=== PATIENT | female | born 1975 | race Hispanic/Latino ===

== ENCOUNTER 2019-04-28 15:40 | Observation (INO) | payer SELFPAY ==
[~2019-04-28] VITALS: Ht 160 cm; Wt 84.1 kg
--- NOTE | ~2019-04-28 | DS ---
[facility] [address] [place], [place] [address] Draft ADMISSION DATE: 04/28/2019 DISCHARGE DATE: 04/29/2019 HOSPITAL COURSE: The patient is a 43-year-old 3, para 2, AB 1, who was admitted through the emergency room last night with severe pelvic pain x3-4 days and retained products of conception. She had undergone a spontaneous on 03/16/2019 in [place] and was given single dose of misoprostol to hopefully complete a removal of products of conception. This apparently was not sufficient to completely empty the uterus and she continued to have some bleeding off and on for the last month and half until she began starting having severe pain a few days ago. She denied any fever or any other symptoms whatever. On admission to the emergency room, she was afebrile and her vital signs were essentially normal, although she did have an admission tachycardia that resolved with simply some time in the emergency room without any therapy whatever. She was also having some chest pain and back pain at the same time and an EKG was done, which was read as normal. The chest pain was assumed to simply be anxiety. Her admission lab work was normal with a hemoglobin of 14.6 and a normal lipase of 16, but she did have sightly elevated liver enzymes, unexplained by anything in her history. Upon my examination, she had a somewhat tender uterus on bimanual exam and the cervix appeared to be completely closed with a small amount of bloody mucus being present. The rest of her examination was quite unremarkable. The ultrasound indicated quite obvious retained products of conception and she was taken to the operating room yesterday evening where a suction and sharp D and C was accomplished with removal of any remaining products of concept, with 435 mL of measured blood loss during the surgery. Postoperatively, in terms of the D and C, she was fine with very minimal bleeding, but she did resume with her chest pain and abdominal pain, which was very vague and difficult to localize. Because of concern of possible gallbladder disease, an upper abdomen ultrasound was accomplished, which was completely negative for all organ systems visualized. She has been diabetic for many years and Medicine consult was obtained with management of her diabetes through the night. Her hemoglobin Alc was 9.1 on admission, so she obviously is not well controlled, but she will resume her normal insulin administration, which consists of 40 units of Lantus at bedtime and sliding scale NovoLog injection before meals. She is to follow up with her regular doctor in [place] for continued diabetic care. She is also to follow up with her OB care provider in [place] as far as completion of this SAB. Upon discharge, she was pain free, having minimal bleeding and very hungry and ready to be discharged. She was discharged with instructions and will follow up as indicated. No medications are given her in terms of prescription, but she is encouraged to stay on vitamins indefinitely until she goes to her menopause, and the reasons for that are explained to her. PATIENT NAME: SANAM AGARWAL DISCHARGE SUMMARY DATE OF : 79 REPORT #: [id number] PHYSICIAN: PCP: NO PRIMARY CARE PHYSICIAN REPORT IS CONFIDENTIAL AND NOT TO BE RELEASED WITHOUT AUTHORIZATION [facility] [address], [place] [address] Draft MD DIANNA Gimenez/HI /[id number] Copies: ~ PATIENT NAME: CARROLLSANAM FUCHS DISCHARGE SUMMARY DATE OF : 79 REPORT #: [id number] PHYSICIAN: PCP: NO PRIMARY CARE PHYSICIAN REPORT IS CONFIDENTIAL AND NOT TO BE RELEASED WITHOUT AUTHORIZATION
--- NOTE | ~2019-04-28 | HP ---
[facility] [address] [place], [place] [address] Draft ADMISSION DATE: 04/28/2019 HISTORY OF PRESENT ILLNESS: The patient is a 43-year-old 2, para 1, female, who apparently went through a spontaneous back on 03/16/2019 in [place], and carries with her a picture on her phone showing a small fetus what appears to be placental tissue and cord. Nonetheless, she was given some misoprostol to probably try to complete evacuation of anything that was left in the uterus and she continued to have some mild spotting, bleeding, and cramping since then, but about 4 days ago, she started having much more severe pain and a little bit heavier bleeding. She presented to the emergency room this evening in [place] with severe pelvic pain and also one day history of chest and back pain that appears to be anxiety-related. PAST MEDICAL HISTORY: She had a prior 3-1/2 years ago, vaginal delivery without difficulties. She was diabetic during that and required insulin. She has been diagnosed with diabetes, not just gestational diabetes and has been on metformin 500 mg twice daily and also takes NovoLog 40 units at bedtime and then p.r.n. NovoLog 3 times a day before meals based upon blood sugar fingersticks. This morning, when she had breakfast about 10 o'clock, her blood sugar prior to that was 154, and she took 7 units of NovoLog. (Her admission blood sugar in the emergency room is 228). Past medical history is unremarkable, but she did have section with her first , which is the only surgery that she has had. ALLERGIES: She is allergic to penicillin. FAMILY HISTORY: Mother with diabetes and hypertension, and also had a very early breast cancer few years ago, which apparently has been cured. PHYSICAL EXAMINATION: VITAL SIGNS: All normal. Those specific values are documented on the chart. On admission, she did have a tachycardia and along with the chest pain, she did a full EKG, which was read as completely normal. The tachycardia, however, has essentially resolved, without IV fluids or any other treatment. HEART: Regular rate and rhythm without murmurs. LUNGS: Clear to auscultation. BACK: No CVA tenderness, although she does express pain in both the chest and back which is very generalized and pretty much mid position, there is no tenderness anywhere. PELVIC: On pelvic examination, which is just done on the exam bed without a speculum PATIENT NAME: SANAM AGARWAL HISTORY AND PHYSICAL DATE OF : 79 REPORT #: [id number] PHYSICIAN: PCP: NO PRIMARY CARE PHYSICIAN REPORT IS CONFIDENTIAL AND NOT TO BE RELEASED WITHOUT AUTHORIZATION [facility] [address] [place], [place] [address] Draft exam, the uterus seems to be probably anteflexed, but is difficult to palpate due to abdominal obesity and tenderness. The uterus is somewhat tender. Cervix is palpated, feels normal, but feels closed. There is small amount bloody mucus on the examining glove upon exit from the vagina. EXTREMITIES: Within normal limits. RESULTS: CBC referred to chart, but hemoglobin was normal and white count was 11,000. The blood sugar, as mentioned above was 228. Other labs were normal. Pelvic ultrasound was done, which shows products of conception retained with considerable "debris" within the uterus which appears to be slightly enlarged by measurement. IMPRESSION: Retained product of conception following spontaneous about a month and half ago. There is no evidence that the patient is infected at this point, but with the increasing pelvic pain, this could be in the consideration for an impending infection. PLAN: We will perform a suction D and C to remove any retaining products of conception, and then evaluate as to whether we can send her home this evening after the surgery or need to keep her overnight depending on how much pain she still has and depending on her vital signs as well. I will give her a dose of antibiotic, probably 2 g of Ancef prior to the D and C. MD DIANNA Gimenez/HI /[id number] Copies: ~ PATIENT NAME: SANAM AGARWAL HISTORY AND PHYSICAL DATE OF : 79 REPORT #: [id number] PHYSICIAN: PCP: NO PRIMARY CARE PHYSICIAN REPORT IS CONFIDENTIAL AND NOT TO BE RELEASED WITHOUT AUTHORIZATION
--- NOTE | ~2019-04-28 | OR ---
[facility] [address] [facility] [place], [place] [address] Draft DATE OF OPERATION: 04/28/2019 SURGEON: Andrea Mayorga MD PREOPERATIVE DIAGNOSIS: Spontaneous with retained products of conception. POSTOPERATIVE DIAGNOSIS: Spontaneous with retained products of conception. PROCEDURE PERFORMED: Suction and sharp curettage. ANESTHESIA: General; Iban Abdul CRNA. ESTIMATED BLOOD LOSS: 435 mL (measured). COMPLICATIONS: None. DESCRIPTION OF PROCEDURE: The patient was taken to the operating room, placed in the dorsal lithotomy position under general anesthesia and prepped and draped in the usual fashion. Her exam under anesthesia revealed the uterus to be anteflexed and approximately normal size, but this was difficult to ascertain secondary to abdominal obesity. A Graves speculum was placed for easy visualization of the cervix, and the cervix was grasped with the single-tooth tenaculum on the anterior lip. The uterine sound was inserted and the uterus sounded to 12 cm depth. Hegar dilators were utilized up to a #10 dilator and then a #9 curved suction curette was introduced. A moderate amount of blood and clot and perhaps a small amount of apparent products of concept was obtained, but not a significant amount of products of conception. The suction curette was removed and a sharp curette and then serrated curette were utilized to attempt to ascertain complete removal of all products of conception on all the endometrial surface areas. Following this, the suction curette was reintroduced and some additional blood was obtained with very little additional tissue if any. A 1000 mcg Cytotec suppository was placed rectally and the uterus was massaged and the bleeding stopped rather abruptly. The patient tolerated the procedure well. PATIENT NAME: SANAM AGARWAL OPERATIVE REPORT DATE OF : 79 REPORT #: [id number] PHYSICIAN: PCP: NO PRIMARY CARE PHYSICIAN REPORT IS CONFIDENTIAL AND NOT TO BE RELEASED WITHOUT AUTHORIZATION [address] [place] [address] Draft MD HEBER Gimenez /[id number] Copies: ~ PATIENT NAME: SANAM AGARWAL OPERATIVE REPORT DATE OF : 79 REPORT #: [id number] PHYSICIAN: PCP: NO PRIMARY CARE PHYSICIAN REPORT IS CONFIDENTIAL AND NOT TO BE RELEASED WITHOUT AUTHORIZATION
[2019-04-28] MEDS ORDERED: GLUCOPHAGE1000 MG PO (16:01)
[2019-04-28] MEDS ORDERED: LANTUS100 UNITS/ SUB-Q (16:02)
[2019-04-28] MEDS ORDERED: NOVOLOG100 UNIT/2 SUB-Q (16:03)
[2019-04-29] MEDS ORDERED: PRENATAL VITAM1 EAC6 PO (10:02)
[2019-04-29] MEDS ORDERED: HUMULIN N100 UNIT/3 SUB-Q ×2 (10:03→10:04)
--- NOTE | 2019-04-29 13:08 | EKG ---
[facility] [address] [facility] [place], [place] [address] Signed Sinus tachycardia Otherwise normal ECG No previous ECGs available Confirmed by SERENA GILMORE MD ([id number]) on 04/29/2019 1:08:16 PM Electronically Signed By: SERENA GILMORE MD 04/29/19 1308 PATIENT NAME: SANAM AGARWAL Electrocardiogram DATE OF : 79 PHYSICIAN: SERENA GILMORE MD REPORT #: [id number] REPORT IS CONFIDENTIAL AND NOT TO BE RELEASED WITHOUT AUTHORIZATION
--- NOTE | 2019-04-29 13:08 | EKG ---
[facility] [address] [facility] [place], [place] [address] Signed Normal sinus rhythm Normal ECG When compared with ECG of 28-APR-2019 15:57, (Unconfirmed) No significant change was found Confirmed by SERENA GILMORE MD ([id number]) on 04/29/2019 1:08:29 PM Electronically Signed By: SERENA GILMORE MD 04/29/19 1308 PATIENT NAME: SANAM AGARWAL Electrocardiogram DATE OF : 79 PHYSICIAN: SERENA GILMORE MD REPORT #: [id number] REPORT IS CONFIDENTIAL AND NOT TO BE RELEASED WITHOUT AUTHORIZATION
--- NOTE | 2019-05-03 15:36 | PATH ---
[facility] [address] [place], [place] [address] Signed SPECIMEN(S): A PRODUCTS OF CONCEPTION SPECIMEN SOURCE: A. PRODUCTS OF CONCEPTION CLINICAL HISTORY: Retained POC S/P . FINAL PATHOLOGIC DIAGNOSIS: Products of conception, submitted: - Products of conception. DDF:chano:C2NR MICROSCOPIC EXAMINATION: Histologic sections of all submitted blocks are examined by light microscopy. These findings, together with the gross examination, support the pathologic diagnosis. GROSS DESCRIPTION: The specimen, labeled "IS, POC," is received in formalin and consists of a 7.5 x 7.0 x 1.6 cm aggregate of red-brown spongy soft tissue with admixed pink rubbery tissue fragment. No parts are grossly identified. Razor Sharpener sections are submitted in cassette (A1-A3). FB (under the direct supervision of a pathologist) The Gross Description was prepared using a voice recognition system. The report was reviewed for accuracy; however, sound-alike word errors, addition and/or deletions may occur. If there is any question about this report, please contact Client Services. PERFORMING LABORATORY: The technical component was performed by [facility], [address] [place] [id number] (Training And Development Manager: Patti Alarcon MD; CLIA# [id number]). [facility], [address] [address] (Training And Development Manager: Ryan Callahan MD; CLIA# [id number]). Diagnostician: Tremaine Levy DO Pathologist Electronically Signed 05/03/2019 PATIENT NAME: SANAM AGARWAL PATHOLOGY DATE OF : 79 REPORT #: [id number] PHYSICIAN: [facility] PCP: NO PRIMARY CARE PHYSICIAN REPORT IS CONFIDENTIAL AND NOT TO BE RELEASED WITHOUT AUTHORIZATION [address] [address] Signed Copies: ~ PATIENT NAME: SANAM AGARWAL PATHOLOGY DATE OF : 79 REPORT #: [id number] PHYSICIAN: [facility] PCP: NO PRIMARY CARE PHYSICIAN REPORT IS CONFIDENTIAL AND NOT TO BE RELEASED WITHOUT AUTHORIZATION
== END 2019-04-29 11:25 | disposition home or self-care (01) ==
LOC: ED 15:40 → MS 15:43
PROVIDERS: ADMIT Obstetrics & Gynecology
PROC: 10D17Z9 Manual Extraction of Products of Conception, Retained, Via Natural or Artificial Opening (ICD-10-PCS; principal; 2019-04-28 19:17)
DX: O03.4 Incomplete spontaneous abortion without complication (principal); E11.9 Type 2 diabetes mellitus without complications; E66.9 Obesity, unspecified; Z79.4 Long term (current) use of insulin; Z88.5 Allergy status to narcotic agent; Z88.0 Allergy status to penicillin
CPT/HCPCS: 00952; 76705; 76830; 76856; 80053; 81001; 83036; 83690; 84703; 85025; 86900; 86901; 93005; 93010; 94760; 94762; 96375; 99285-25; G0378; J0131; J0690; J1100; J1170; J1815; J1885; J2405; J2704; J3010; J7120